=== PATIENT | male | born 1980 | race African-American/Black ===

== ENCOUNTER 2025-07-25 16:41 | Emergency (ER) | payer OTHER ==
[2025-07-25] MEDS ORDERED: Lidocaine 1%/Epinephrine 1:100K 10 ML VIAL ONE (17:10)
[2025-07-25] MEDS ORDERED: Boostrix 0.5 ML (Tdap) VIAL (>/=7 yrs of age) ONE (17:10)
[2025-07-25] MEDS ORDERED: Bacitracin 1 PK ONE (17:10)
== END 2025-07-25 17:45 | disposition home or self-care (01) ==
LOC: MADERS 16:41
DX: S51.812A Laceration without foreign body of left forearm, initial encounter (principal); E78.00 Pure hypercholesterolemia, unspecified; F17.210 Nicotine dependence, cigarettes, uncomplicated; Z23 Encounter for immunization; Z86.73 Personal history of transient ischemic attack (TIA), and cerebral infarction without residual deficits; W26.8XXA Contact with other sharp object(s), not elsewhere classified, initial encounter
CPT/HCPCS: 12002; 90471; 90715

== ENCOUNTER 2025-08-06 10:38 | Emergency (ER) | payer OTHER | END 2025-08-06 10:59 | disposition home or self-care (01) | LOC: MADERS 10:38 | DX: S51.812D Laceration without foreign body of left forearm, subsequent encounter (principal); Z86.73 Personal history of transient ischemic attack (TIA), and cerebral infarction without residual deficits; F17.210 Nicotine dependence, cigarettes, uncomplicated; X58.XXXD Exposure to other specified factors, subsequent encounter ==